=== PATIENT | male | born 1985 | race Caucasian/White ===

== ENCOUNTER 2016-12-13 16:59 | Emergency (ER) | payer MEDICAID ==
[~2016-12-13] VITALS: Ht 175.3 cm; Wt 85.0 kg
[~2016-12-13 16:59] MED LIST: LORA-441 PO
[2016-12-13 17:02] VITALS: Ht 175.3 cm; Wt 85.0 kg
[2016-12-13] MEDS ORDERED: SOD CHLORIDE 0.9% 1,000 ML IV ONE (17:30)
--- NOTE | 2016-12-13 18:12 | RADRPT ---
PROCEDURE: CT Head without contrast. CLINICAL INDICATION: intermittent headache and lightheadedness TECHNIQUE: Continuous axial CT images were obtained from the base of skull to the vertex. No cont rast was administered. The calculated radiation dose measures 720 mGy centimeters. The CTDI measures 45 mGy One or more of the following dose reduction techniques were used: Automated exposure control. Adjustment of the mA and/or kV according to patient size. Use of iterative reconstruction technique. COMPARISON: No prior studies are available for comparison. FINDINGS: The ventricles are symmetric and normal in size. There is no mass effect or midline shift. There i s no abnormal intra-axial or extra-axial fluid collection. There is no evidence of intracranial hem orrhage. There are no abnormal areas of increased or decreased attenuation in the brain parenchyma. The bony calvarium is intact. The orbital soft tissue contents are unremarkable. Paranasal sinuses appear clear IMPRESSION: No mass effect or acute intracranial bleed. Unremarkable CT brain. RPTAT: DD .Armando Calderón MD, MD Date Time Electronically viewed and signed by .Armando Calderón MD, on 12/13/2016 18:12 .T/
[2016-12-13 18:17] LABS: BASOPHIL # 0.1 10^3/ul (0.0-0.1); BASOPHILS % 0.6 % (0.0-2.0); EOSINOPHILS % 0.1 % (0.0-7.0); HEMATOCRIT 46.5 % (42.0-52.0); HEMOGLOBIN 15.4 g/dl (14.0-18.0); LYMPHOCYTES # 1.8 10^3/ul (0.8-2.9); MEAN CORPUSCULAR HEMOGLOBIN 27.8 pg (29.0-33.0); MEAN CORPUSCULAR HGB CONC 33.1 g/dl (32.0-37.0); MEAN CORPUSCULAR VOLUME 83.9 fl (82.0-101.0); MEAN PLATELET VOLUME 10.3 fl (7.4-10.4); MONOCYTE # 0.6 10^3/ul (0.3-0.9); MONOCYTES % 7.1 % (0.0-11.0); NEUTROPHIL # 5.8 10^3/ul (1.6-7.5); NEUTROPHILS % 69.8 % (39.0-77.0); PLATELET COUNT 202 10^3/UL (140-415); RED BLOOD COUNT 5.54 10^6/ul (4.70-6.10); RED CELL DISTRIBUTION WIDTH 13.8 % (11.5-14.5); WHITE BLOOD COUNT 8.3 10^3/ul (4.8-10.8)
--- NOTE | 2016-12-13 18:20 | ERD ---
ER Documentation Chief Complaint Date/Time DATE: 12/13/16 TIME: 18:16 Chief Complaint light headed x 2 weeks HPI Patient is a 31-year-old male with no past medical history presents emergency department for concerns of lightheadedness 2 weeks. Patient describes his symptoms to be intermittent in nature. Patient states it feels as if his "legs are going to give up." Patient denies any room spinning sensation. Patient denies any falls or loss of consciousness. Patient denies any headache, blurry vision, chest pain, shortness of breath, nausea, vomiting, abdominal pain, back pain or LOC. Patient denies any new medication changes. Patient denies any recent surgeries or travel. Patient does report increase and recent stress. Patient states he has had similar symptoms over one year ago and at that time he was told he had anxiety. Patient denies any homicidal or suicidal ideations at this time. ROS All systems reviewed and are negative except as per history of present illness. Medications Home Meds Active Scripts Lorazepam* (Ativan*) 0.5 Mg Tablet, 0.5 MG PO Q8, #10 TAB Prov:OSMANY EVANS 09/30/15 Allergies Allergies: Coded Allergies: No Known Allergy (Unverified , 09/30/15) PMhx/Soc History of Surgery: No Anesthesia Reaction: No Hx Neurological Disorder: No Hx Respiratory Disorders: No Hx Cardiac Disorders: No Hx Psychiatric Problems: No Hx Miscellaneous Medical Probl: No Hx Alcohol Use: No Hx Substance Use: No Hx Tobacco Use: No Physical Exam Vitals Vital Signs Date Time Temp Pulse Resp B/P Pulse Ox O2 Delivery O2 Flow Rate FiO2 12/13/16 17:02 98.9 94 18 140/86 98 Physical Exam GENERAL: Well-developed, well-nourished male. Appears in no acute distress. Speaking in full sentences HEAD: Normocephalic, atraumatic. EYES: Pupils are equally reactive bilaterally. EOMs grossly intact. No conjunctival erythema. ENT: Moist mucous membranes. No uvula deviation. No kissing tonsils. NECK: Supple. No meningismus. Normal range of motion of the neck. LUNG: Clear to auscultation bilaterally. No rhonchi, wheezing, rales or coarse breath sounds. HEART: Regular rate and rhythm. No murmurs, rubs or gallops. BACK: No midline tenderness. EXTREMITIES: Equal pulses bilaterally. No peripheral clubbing, cyanosis or edema. No unilateral leg swelling. NEUROLOGIC: Alert and oriented x3, cooperative. Mood and affect appropriate to situation. Cranial nerves II through XII are grossly intact. Normal speech. Motor exam: 5/5 strength in upper and lower extremities. Sensory exam: Sensation intact to light touch on all four extremities. Cerebellar function exam: Rapid alternating movements intact. No dysmetria on [id number] test. Steady gait. No pronator drift. SKIN: Normal color. Warm and dry. No rashes or lesions. Result Diagram: 12/13/16173912/13/160 Results 24 hrs Laboratory Tests Test 12/13/16 17:40 White Blood Count 8.310^3/ul Red Blood Count 5.5410^6/ul Hemoglobin 15.4g/dl Hematocrit 46.5% Mean Corpuscular Volume 83.9fl Mean Corpuscular Hemoglobin 27.8pg Mean Corpuscular Hemoglobin Concent 33.1g/dl Red Cell Distribution Width 13.8% Platelet Count 86924^3/UL Mean Platelet Volume 10.3fl Neutrophils % 69.8% Lymphocytes % 22.0% Monocytes % 7.1% Eosinophils % 0.1% Basophils % 0.6% Nucleated Red Blood Cells % 0.0/100WBC Neutrophils # 5.810^3/ul Lymphocytes # 1.810^3/ul Monocytes # 0.610^3/ul Eosinophils # 0.010^3/ul Basophils # 0.110^3/ul Nucleated Red Blood Cells # 0.010^3/ul Sodium Level 142mmol/L Potassium Level 4.1mmol/L Chloride Level 105mmol/L Carbon Dioxide Level 27mmol/L Anion Gap 14 Blood Urea Nitrogen 9mg/dl Creatinine 0.84mg/dl Glucose Level 96mg/dl Calcium Level 9.5mg/dl Total Bilirubin 0.6mg/dl Direct Bilirubin 0.00mg/dl Indirect Bilirubin 0.6mg/dl Aspartate Amino Transf (AST/SGOT) 27IU/L Alanine Aminotransferase (ALT/SGPT) 41IU/L Alkaline Phosphatase 84IU/L Total Protein 8.5g/dl Albumin 4.9g/dl Globulin 3.60g/dl Albumin/Globulin Ratio 1.36 Current Medications Medications (Trade) Dose Ordered Sig/Brett Route PRN Reason Start Time Stop Time Status Last Admin Dose Admin Sodium Chloride (NS) 1,000 ml @ 1,000 mls/hr Q1H ONCE IV 12/13/16 17:30 12/13/16 18:29 DC 12/13/16 17:47 Procedures/MDM ED COURSE: The patient was stable throughout ED course. I kept the patient and/or family informed of laboratory and diagnostic imaging results throughout the ED course. EKG: Read by Dr. Garcia, attending physician. EKG shows sinus rhythm with premature supraventricular complexed at a rate of 82 bpm No arrhythmias, acute ST elevations or T wave changes were noted. IMAGING STUDIES: Patient: RAMON MIKE : 1985 Age: 31 Sex: M MR #: [id number] DOS: 12/13/16 1716 Ordering MD: RACHEL RUIZ PA-C Location: [facility] Room/Bed: PROCEDURE: CT Head without contrast. CLINICAL INDICATION: intermittent headache and lightheadedness TECHNIQUE: Continuous axial CT images were obtained from the base of skull to the vertex. No contrast was administered. The calculated radiation dose measures 720 mGy centimeters. The CTDI measures 45 mGy One or more of the following dose reduction techniques were used: Automated exposure control. Adjustment of the mA and/or kV according to patient size. Use of iterative reconstruction technique. COMPARISON: No prior studies are available for comparison. FINDINGS: The ventricles are symmetric and normal in size. There is no mass effect or midline shift. There is no abnormal intra-axial or extra-axial fluid collection. There is no evidence of intracranial hemorrhage. There are no abnormal areas of increased or decreased attenuation in the brain parenchyma. The bony calvarium is intact. The orbital soft tissue contents are unremarkable. Paranasal sinuses appear clear IMPRESSION: No mass effect or acute intracranial bleed. Unremarkable CT brain. RPTAT: DD .Armando Calderón MD, Date Time Electronically viewed and signed by .Armando Calderón MD, MD on 12/13/2016 18:12 .T/ CC: RACHEL RUIZ PA-C PROCEDURES: None. MEDICATIONS GIVEN: IV fluids Patient tolerated medication well with no adverse reactions. Patient reported improvement in pain. MEDICAL DECISION MAKING: This is a 31-year-old male who presents with intermittent episodes of lightheadedness for the last 2 weeks. Vital signs were reviewed. Patient is afebrile. Patient was not hypoxic. Patient was hemodynamically stable. CBC showed no evidence of systemic infection or severe anemia. CMP showed no evidence of electrolyte abnormalities, severe acidosis, alkalosis, renal failure , or liver disease. Lipase showed no evidence of acute pancreatitis. CT brain was negative. EKG was within normal limits. PERC score was 0. At this time, patient's presentation is most consistent with lightheadedness of unknown etiology. Low suspicion for her cranial hemorrhage, no cranial mass, ACS, pericarditis, arrhythmia, PE, pneumonia, pneumothorax, electrolyte abnormalities , sepsis. DISCHARGE: At this time, patient is stable for discharge and outpatient management. Patient was given a copy of all imaging and blood work obtained today. I have instructed the patient to follow-up with his/her primary care physician in 1-2 days. I have discussed with the patient the possibility of needing to see a specialist for further workup and imaging studies if symptoms persist. I have instructed the patient to promptly return to the ER for any new or worsening symptoms including increased pain, fever, nausea, vomiting, weakness or LOC. The patient and/or family expressed understanding of and agreement with this plan. All questions were answered. Home care instructions were provided. Disclaimer: Inadvertent spelling and grammatical errors are likely due to EHR/ dictation software use and do not reflect on the overall quality of patient care. Also, please note that the electronic time recorded on this note does not necessarily reflect the actual time of the patient encounter. Departure Diagnosis: Primary Impression: Lightheadedness Condition: Stable Patient Instructions: Dizziness, Unk Cause Referrals: COMMUNITY CLINICS YOU HAVE RECEIVED A MEDICAL SCREENING EXAM AND THE RESULTS INDICATE THAT YOU DO NOT HAVE A CONDITION THAT REQUIRES URGENT TREATMENT IN THE EMERGENCY DEPARTMENT. FURTHER EVALUATION AND TREATMENT OF YOUR CONDITION CAN WAIT UNTIL YOU ARE SEEN IN YOUR DOCTORS OFFICE WITHIN THE NEXT 1-2 DAYS. IT IS YOUR RESPONSIBILITY TO MAKE AN APPOINTMENT FOR FOLOW-UP CARE. IF YOU HAVE A PRIMARY DOCTOR --you should call your primary doctor and schedule an appointment IF YOU DO NOT HAVE A PRIMARY DOCTOR YOU CAN CALL OUR PHYSICIAN REFERRAL HOTLINE AT IF YOU CAN NOT AFFORD TO SEE A PHYSICIAN YOU CAN CHOSE FROM THE FOLLOWING [facility] [address] [facility] [address] [facility] [address] [facility] [address] [facility] [address] [facility]. [facility] [address] [facility]. [facility] YOU HAVE RECEIVED A MEDICAL SCREENING EXAM AND THE RESULTS INDICATE THAT YOU DO NOT HAVE A CONDITION THAT REQUIRES URGENT TREATMENT IN THE EMERGENCY DEPARTMENT. FURTHER EVALUATION AND TREATMENT OF YOUR CONDITION CAN WAIT UNTIL YOU ARE SEEN IN YOUR DOCTORS OFFICE WITHIN THE NEXT 1-2 DAYS. IT IS YOUR RESPONSIBILITY TO MAKE AN APPOINTMENT FOR FOLOW-UP CARE. IF YOU HAVE A PRIMARY DOCTOR --you should call your primary doctor and schedule and appointment IF YOU DO NOT HAVE A PRIMARY DOCTOR YOU CAN CALL OUR PHYSICIAN REFERRAL HOTLINE AT . IF YOU CAN NOT AFFORD TO SEE A PHYSICIAN YOU CAN CHOSE FROM THE FOLLOWING [facility]: [facility] [address] [place] [address] [facility] [address] [place] [address] [facility] [address] [place] [address] Additional Instructions: Call your primary care doctor TOMORROW for an appointment during the next 1-2 days.See the doctor sooner or return here if your condition worsens before your appointment time. RACHEL RUIZ PA-C Dec 13, 2016 18:20
[2016-12-13 18:28] LABS: ALBUMIN 4.9 g/dl (3.3-4.9); ALBUMIN/GLOBULIN RATIO 1.36; BILIRUBIN,INDIRECT 0.6 mg/dl (0-1.1); BILIRUBIN,TOTAL 0.6 mg/dl (0.2-1.3); CALCIUM 9.5 mg/dl (8.4-10.2); CREATININE 0.84 mg/dl (0.61-1.24); POTASSIUM 4.1 mmol/L (3.5-5.1); TOTAL PROTEIN 8.5 g/dl (6.1-8.1)
== END 2016-12-13 19:05 | disposition home or self-care (01) ==
LOC: FTE 16:59
DX: R42 Dizziness and giddiness (principal)
CPT/HCPCS: 70450; 80053; 85025; 93005; J7030; Z7502

== ENCOUNTER 2017-11-11 20:58 | Emergency (ER) | END 2017-11-12 00:47 | disposition home or self-care (01) ==